=== PATIENT | female | born 1975 | race Caucasian/White ===

== ENCOUNTER 2017-01-05 07:04 | Day surgery (SDC) | payer BC ==
[~2017-01-05] VITALS: Ht 162.6 cm; Wt 141.5 kg
[~2017-01-05 07:04] MED LIST: ASPI-482 PO; BUPIVACAINE MPF 0.5% 30 ML VIAL. ONE; CETI10TA22 PO; HYDROmorphone 2 MG/ML VIAL IV PRN; IV RINGERS,LACTATED 1000ML 1,000 ML IV SCH; LIDOCAINE 1% PF 2 ML VIAL. ID PRN; LIDOCAINE 1% PF 30 ML VIAL. ONE; MORPHINE SULFATE 2 MG/ML DISP.SYRIN. IV PRN; ONDANSETRON PF 4 MG/2 ML VIAL. IV PRN; PROCHLORPERAZINE 10 MG/2 ML VIAL. IV PRN; fentaNYL PF VIAL 100 MCG/2 ML VIAL IV PRN
[2017-01-05 07:48] LABS: NEG OBC UR NEG; POS OBC UR POS
[2017-01-05] MEDS ORDERED: fentaNYL PF VIAL 100 MCG/2 ML VIAL ONE (08:20)
--- NOTE | 2017-01-05 08:48 | DISCH ---
DISCHARGE INSTRUCTIONS Condition on Discharge Condition on Discharge: Stable Activity After Discharge Activity Instructions for Disc: Other, see below Other activity instructions: wiggle fingers, no lifting Bathing Instructions: Shower-keep dressing dry Weight Bearing Status after Di: As tolerated, Other, see below Sexual Activity Restrictions: as above Diet after Discharge Diet after Discharge: Regular Wound Incision Care Wound/Incision Care: Ice to area for comfort, Keep wound/cast CDI, Change dressing Contacting the DR. after DC Call your doctor for: Concerns you may have Follow-Up Follow up with: Clarissa in 2wks BRISA OLIVA II, MD Jan 05, 2017 08:48
--- NOTE | 2017-01-05 08:49 | PDOC ---
BRIEF OPERATIVE NOTE Date: Jan 05, 2017 Pre-Op Diagnosis R CTS, cubital tunnel, 2nd TF Post-Op Diagnosis same Procedure Performed Open R CTR, cubital tunnel release, tf injection Surgeon Clarissa Anesthesia Type: General, Local Blood Loss per op report Complications none BRISA OLIVA II, MD Jan 05, 2017 08:49
[2017-01-05] MEDS ORDERED: PROPOFOL 20 ML IV ONE (08:55)
[2017-01-05] MEDS ORDERED: ONDANSETRON PF 4 MG/2 ML VIAL. ONE (08:55)
[2017-01-05] MEDS ORDERED: DEXAMETHASONE SOD PHOS 20 MG/5 ML VIAL. ONE (08:55)
[2017-01-05] MEDS ORDERED: TRIAMCINOLONE ACETONIDE 40 MG/ML VIAL. INT ART ONE (09:00)
[2017-01-05] MEDS ORDERED: SEVOFLURANE 61 TO 120 MINUTES. IH ONE (09:45)
[2017-01-05] MEDS: fentaNYL PF VIAL 100 MCG/2 ML VIAL IV PRN ×3 (10:00→10:28)
[2017-01-05] MEDS ORDERED: OXYC-323 PO (10:04)
[2017-01-05] MEDS ORDERED: DOCU-109 PO (10:05)
[2017-01-05] MEDS ORDERED: ONDA4TAB10 PO (10:05)
[2017-01-05] MEDS ORDERED: MORPHINE SULFATE 4 MG/ML DISP.SYRIN. ONE (10:24)
[2017-01-05] MEDS ORDERED: oxyCODONE/APAP 5/325 1 TAB TABLET PO ONE (10:45)
--- NOTE | 2017-01-05 10:49 | OP ---
DATE OF SURGERY: 01/05/2017 SURGEON: Errol Oliva MD CHEF BROILER OR FRY: None. PREOPERATIVE DIAGNOSES: 1. Right carpal tunnel. 2. Right cubital tunnel syndrome. 3. Right second digit trigger finger. POSTOPERATIVE DIAGNOSES: 1. Right carpal tunnel. 2. Right cubital tunnel syndrome. 3. Right second digit trigger finger. PROCEDURE PERFORMED: 1. Open right cubital tunnel decompression. 2. Open right carpal tunnel release. 3. Injection of right second digit trigger finger. COMPLICATIONS: None. TOURNIQUET TIME: 28 minutes. ESTIMATED BLOOD LOSS: 15 mL. REASON FOR PROCEDURE: The patient is a very pleasant 41-year-old female with paresthesias and pain who presented to my clinic. She underwent conservative therapies for her above preoperative diagnoses that were confirmed on EMG. She had concordant symptoms with EMG. Because of failure of conservative therapies and interference with her activities of daily living, we had a discussion of the risks, benefits, alternatives of the above procedure and she elected to proceed. DESCRIPTION OF PROCEDURE: The patient was greeted in the preoperative area by myself where the correct extremity and regions were marked and verified. She was then taken back to the operative suite and antibiotics started en route. Once in the OR, transferred gently supine to the OR table and underwent successful induction of general anesthetic. We then proceeded to prep and drape the right upper extremity in our usual sterile fashion and then applied a sterile tourniquet. The extremity was then exsanguinated with an Esmarch and tourniquet insufflated to 250 mmHg. I then injected her trigger finger by advancing the needle down into the tendon sheath and performing the injection. The area was cleansed and dried after the needle was withdrawn. I then directed my attention to her carpal tunnel release and made a incision distal to her distal wrist crease into her volar palm. I incised the skin with a scalpel and used bipolar electrocautery to cauterize bleeders. I bluntly spread subcutaneous tissue with the hemostat and incised the palmar fascia in line with the skin incision. I placed my self-retraining retractor and I identified the transverse carpal ligament and released it sharply with the scalpel. I then placed a Ragnell retractor at the distal portion of the incision to spread above and below the fascia there to ensure I had accomplished complete release and transected a few small remaining fibers overlying the median nerve. I then repositioned my Ragnell retractor at the proximal aspect of her carpal tunnel incision, spread above and below the distal antebrachial fascia and released this in an ulnar directed fashion. I then palpated along the course of the nerve root with the tip of the scissors to ensure I had accomplished a complete release, which I was confident I had. I then irrigated this wound out with sterile normal saline and closed the skin with combination of vertical mattress and simple interrupted 2-0 nylon. We then placed Steri-Strips. I then directed my attention to palpating for her medial epicondyle and anjel a line on her skin centered over this. I then flexed the elbow and positioned the arm for better visualization and made my skin incision. I used tenotomies to dissect the subcutaneous tissue and bipolar and regular cautery to achieve hemostasis. There was a large amount of subcutaneous tissue and I took my time with the dissection until I was able to reliably palpate the medial epicondyle. I then placed my self-retraining retractors and decompressed the ulnar nerve from the triceps muscle to the forearm flexor muscles. I then let the tourniquet down and cauterized a couple of bleeders in the subcutaneous tissue at her elbow. I then irrigated this. I closed the deep layers with inverted interrupted 2-0 and inverted interrupted 2-0 was also used for subcutaneous tissue followed by 2-0 nylon in a simple interrupted fashion. Steri-Strips were then applied followed by Xeroform at both incisions, followed by gauze and soft roll, followed by an Dalton wrap. She tolerated surgery well. It should be noted that after decompressing the ulnar nerve there was no subluxation with range of motion at her elbow. She was awakened from anesthesia. She tolerated the surgery well. Prior to completion of wound closure, all counts were correct x 2. At the conclusion of surgery she was extubated and transferred gently supine to the recovery room cart and taken to PACU in stable and extubated condition. Postop plan is for gentle active range of motion of fingers, wrist and elbow. Wound care instructions were discussed with her and her . We will see her back in clinic in 2 weeks, sooner should any problem arise. ERROL OLIVA MD DR: GAL/austin JOB#: [id number] / [id number] ROSITA
[2017-01-05 11:20] VITALS: BP 129/78
== END 2017-01-05 11:45 | disposition home or self-care (01) ==
LOC: SURG 07:04
PROVIDERS: ATTEND Orthopaedic Surgery Sports Medicine
DX: G56.01 Carpal tunnel syndrome, right upper limb (principal); G56.21 Lesion of ulnar nerve, right upper limb; M65.321 Trigger finger, right index finger; E78.00 Pure hypercholesterolemia, unspecified; I10 Essential (primary) hypertension; E66.9 Obesity, unspecified; Z68.43 Body mass index [BMI] 50.0-59.9, adult; F41.9 Anxiety disorder, unspecified; G47.30 Sleep apnea, unspecified; Z86.718 Personal history of other venous thrombosis and embolism
CPT/HCPCS: 20552; 64718; 64721; 81025; A4215; J0690; J0780; J1100; J2270; J2405; J2704; J3010; J3301; J3490; J7120

== ENCOUNTER → 2017-02-02 | Day surgery (SDC) | payer BC ==
[~2017-02-02] VITALS: Ht 160 cm; Wt 140.6 kg
[~2017-02-02] MED LIST changes: +DESFLURANE 61 TO 120 MINUTES IH ONE; +DEXAMETHASONE SOD PHOS 20 MG/5 ML VIAL. ONE; +DOCU-109 PO; +HYDR-971 PO; +HYDROcodone/APAP 5/325MG 1 TAB TABLET PO PRN; +LIDOCAINE 2% PF Vial for OR 5 ML VIAL. ONE; +MIDAZOLAM HCL/PF 2 MG/2 ML VIAL. ONE; +ONDA4TAB10 PO; +ONDA4TAB7 PO; +ONDANSETRON PF 4 MG/2 ML VIAL. ONE; +OXYC-323 PO; +PROPOFOL 20 ML IV ONE; +SEVOFLURANE 31 TO 60 MINUTES. IH ONE; +fentaNYL PF VIAL 100 MCG/2 ML VIAL ONE
[2017-02-02 07:03] LABS: NEG OBC UR NEG; POS OBC UR POS
--- NOTE | 2017-02-02 07:30 | DISCH ---
DISCHARGE INSTRUCTIONS Condition on Discharge Condition on Discharge: Stable Activity After Discharge Activity Instructions for Disc: Other, see below Other activity instructions: ok to use arm/hand for ADLs Bathing Instructions: Shower-keep dressing dry Lifting Instructions after Dis: No heavy lifting, No pulling or pushing Weight Bearing Status after Di: Non weight bearing Diet after Discharge Diet after Discharge: Regular Wound Incision Care Wound/Incision Care: Ice to area for comfort, Keep wound/cast CDI, Keep wound elevated, Change dressing Other wound/incision instructi: ok to change dressing after 2 days Contacting the DRMartha after DC Call your doctor for: Concerns you may have Follow-Up Follow up with: Clarissa in 2wks BRISA OLIVA II, MD Feb 02, 2017 07:30
--- NOTE | 2017-02-02 07:31 | PDOC ---
BRIEF OPERATIVE NOTE Date: Feb 02, 2017 Pre-Op Diagnosis L carpal and cubital tunnel syndrome Post-Op Diagnosis same Procedure Performed Open L CTR and cubital tunnel release Surgeon Clarissa Shopper Catrina Anesthesiologist Yeison Anesthesia Type: General, Local Blood Loss see op report Complications none BRISA OLIVA II, MD Feb 02, 2017 07:31
--- NOTE | 2017-02-02 09:34 | OP ---
DATE OF SURGERY: 02/02/2017 SURGEON: Errol Oliva MD PROPERTY CARETAKER: None. PREOPERATIVE DIAGNOSES: 1. Left cubital tunnel syndrome. 2. Left carpal tunnel syndrome. POSTOPERATIVE DIAGNOSES: 1. Left cubital tunnel syndrome. 2. Left carpal tunnel syndrome. PROCEDURE PERFORMED: 1. Open left carpal tunnel release, 2. Open left cubital tunnel release. TOURNIQUET TIME: 60 minutes. ESTIMATED BLOOD LOSS: 20 mL. ANESTHESIA: General plus local at the end. COMPLICATIONS: None. FINDINGS: No ulnar nerve subluxation with flexion and extension after release. Slightly hyperemic appearing median nerve at the wrist and ulnar nerve at the elbow. REASON FOR PROCEDURE: The patient is a very pleasant female with EMG proven cubital and carpal tunnel syndrome, whose clinical examination was consistent with those diagnoses. She had tried and failed conservative therapies and had failed these. Because of persistent symptoms, interference with her activities of daily living, we had discussion of risks, benefits, alternatives to the above surgery, and she elected to proceed. DESCRIPTION OF PROCEDURE: The patient was greeted in the preoperative area by myself. Correct extremity was marked and verified. She was taken to the operative suite and antibiotics were started en route. Once in the OR, she was transferred gently supine to the OR table and secured to the bed with all pressure points padded. We then attached arm table to the left side and proceeded to prep and drape of the left upper extremity in usual sterile fashion and then conducted a standard preoperative timeout. After this, I applied a nonsterile tourniquet to her left upper arm. Extremity was then exsanguinated with an Esmarch and tourniquet insufflated to 250 mmHg. After this, I had made a skin incision through a crease overlying her carpal tunnel from her distal wrist crease in her hand. I incised skin with a scalpel and used bipolar cautery to cauterize couple of bleeders. I then used a mosquito to spread apart the subcutaneous tissue and placed the self retainer. I then incised the palmar fascia with the scalpel and repositioned my self-retaining retractor. I then identified the transverse carpal ligament and used a scalpel to transect this. I then placed a Ragnell retractor distally in the incision and spread above and below some more fascia there above the nerve to release this. I then repeated this maneuver in an ulnar directed fashion at the proximal aspect of the incision. After this, I used the tip of the tenotomy scissors to palpate along the course of the nerve to ensure I had accomplished a complete release, which I was confident I had. I then irrigated out this wound with sterile normal saline and closed the skin with 2-0 nylon in a vertical mattress fashion. I then directed my attention to her cubital tunnel and palpated for her landmarks and then anjel a line from the skin incision just posterior to the medial epicondyle. I incised skin with a scalpel and dissected subcutaneous tissue with tenotomies. I used bipolar cautery again to cauterize some bleeders in the skin. I then incised fascial and skin incision and identified her ulnar nerve and then released the fascia overlying this from proximal around her triceps into her flexor mass. I then palpated along the course of the nerve with the tenotomies to make sure there were no residual bands, which there were not. I then took her elbow through repeated flexion and extension and noted no subluxation over ulnar nerve. Therefore, I did not feel there is any need to transpose it. After this, I irrigated out the operative field and let the tourniquet down. I cauterized small bleeders down deep into subcutaneous tissue with a bipolar cautery. I then closed subcutaneous tissue with inverted interrupted 2-0 Vicryl. I then used a 2-0 nylon in horizontal mattress fashion to close skin. I then infiltrated about 15 mL of local anesthetic around her elbow and about 5 around the carpal tunnel incision. We then cleansed and dried her arm and hand. I placed Steri-Strips, Xeroform, sterile gauze and a bulky soft roll around her hand and arm. I then applied an Dalton wrap. We then awakened her from anesthesia and transferred gently supine to the recovery room cart after she was extubated. She was then transferred to the PACU in stable and extubated condition. Prior to completion of wound closure, all counts were reported correct x 2. No complications. She tolerated the surgery well. Postoperative plan is to discharge her home. Wound care instructions were given to her as well as in written form. She will follow up with me in 2 weeks, sooner should her problem arise. ERROL OLIVA MD DR: Maggie JOB#: [id number] / [id number] ROSITA
[2017-02-02 10:15] VITALS: BP 126/78
== END | disposition home or self-care (01) ==
LOC: SURG 06:12
PROVIDERS: ATTEND Orthopaedic Surgery Sports Medicine
DX: G56.02 Carpal tunnel syndrome, left upper limb (principal); G56.22 Lesion of ulnar nerve, left upper limb; I10 Essential (primary) hypertension; E28.2 Polycystic ovarian syndrome; F41.9 Anxiety disorder, unspecified; E66.9 Obesity, unspecified; G47.30 Sleep apnea, unspecified; E78.00 Pure hypercholesterolemia, unspecified; Z86.718 Personal history of other venous thrombosis and embolism
CPT/HCPCS: 64718; 64721; 81025; A4215; J0690; J1100; J2250; J2405; J2704; J3010; J3490; J2001